=== PATIENT | female | born 1985 | race Caucasian/White ===

== ENCOUNTER 2023-11-26 18:38 | Emergency (ER) | payer OTHER ==
[2023-11-26 19:18] VITALS: BP 114/66; PULSE 69; RESP 17; TEMP 98.4; BMI 29.2
[2023-11-26 20:17] LABS: BASO % 0.5 % (0-2.0); EOS % 3.6 % (0-4.5); HEMATOCRIT 34.2 % (32.4-45.2); HEMOGLOBIN 11.7 GM/dL (10.7-15.3); LYMPH % 35.3 % (8-40); MCH 27.4 pg (25.7-33.7); MCHC 34.2 g/dl (32.0-36.0); MEAN CELL VOLUME 80.1 fl (80-96); NEUT % 54.6 % (42.8-82.8); PLATELET COUNT 292 10^3/uL (134-434); RBC 4.28 M/mm3 (3.60-5.2); RDW 14.1 % (11.6-15.6); WHITE BLOOD COUNT 5.8 K/mm3 (4.0-10.0)
[2023-11-26 20:36] LABS: POTASSIUM 3.8 mmol/L (3.5-5.1)
[2023-11-26 20:42] LABS: ALBUMIN 3.7 g/dl (3.4-5.0); BLOOD UREA NITROGEN 13.8 mg/dL (7-18); CALCIUM 9.1 mg/dL (8.5-10.1)
[2023-11-26 20:45] LABS: CREATININE 0.8 mg/dL (0.55-1.3)
[2023-11-26 20:47] LABS: BILIRUBIN,TOTAL 0.2 mg/dL (0.2-1); TOT PROT 8.2 g/dl (6.4-8.2)
== END 2023-11-26 22:22 | disposition home or self-care (01) ==
LOC: JER 18:38
DX: N93.9 Abnormal uterine and vaginal bleeding, unspecified (principal); R10.2 Pelvic and perineal pain; D25.2 Subserosal leiomyoma of uterus
CPT/HCPCS: 36415; 76830-TC; 80053; 84703; 85025; 86850; 86900; 86901; 99284-25